=== PATIENT | female | born 1970 | race Caucasian/White ===

== ENCOUNTER 2020-06-21 19:01 | Emergency (ER) | payer SELFPAY ==
[2020-06-21 19:02] VITALS: BP 156/102; PULSE 103; RESP 18; TEMP 35.8; O2SAT 99; BMI 26.5
--- NOTE | 2020-06-21 19:05 | RAD_ITS ---
STUDY: X-RAY - RIGHT WRIST REASON FOR EXAM: Female, 50 years old. FALL INJURY TECHNIQUE: 3 view(s) of the wrist were obtained. COMPARISON: None. FINDINGS: A small linear fracture is present through the dorsum of the triquetrum with minimal cortical offset and mild overlying soft tissue swelling. No additional fractures are seen. Normal visualized distal radius and ulna. Normal radiocarpal articulation. Normal distal radioulnar articulation. Normal carpal bones. Normal carpal articulations. Normal carpometacarpal articulation of the thumb. Normal second through fifth carpometacarpal articulations. Normal visualized metacarpal bones. The soft tissue structures are unremarkable. RAD/Wrist min 3 Views IMPRESSION: A small linear fracture is present through the dorsum of the triquetrum with minimal cortical offset and mild overlying soft tissue swelling. No additional fractures are seen Electronically Signed: Ovidio Mc MD at 19:46 EST , Service support ,
--- NOTE | 2020-06-21 20:23 | ED.DCSUM_ITS ---
- ER Visit Summary Date of Service: 06/21/20 Chief Complaint: Right wrist pain History of Present Illness: The patient is a 50 F with no primary care physician. She is right-hand dominant. 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 Reports yesterday she slipped on the ice and injured her right wrist. She states that she has s harp pain with that is 8 out of 10 with movement no pain at rest. She denies any other injuries. No blow to the head or loss of consciousness. She not on anticoagulants. No neck, back, shoulder, or hip pain. Physical Examination: Vitals: Stable. Afebrile. Neck: No vertebral tenderness. Full ROM without difficulty. Cleared by NEXUS criteria. Back: No vertebral tenderness. General: A&O x 3. NAD. Cardiovascular exam: Regular rate and rhythm, no murmur, rub or gallop. Respiratory exam: Chest nontender. No crepitus. Clear to auscultation bilaterally. No wheezes or stridor. Abdominal exam: Soft, nontender, nondistended, normal bowel sounds. No pain in RUQ or LUQ specifically. No peritoneal signs. Extremity: No pain over the right distal radius. She does have moderate pain over the proximal portion of her hand laterally on the dorsum. She is neuro vas intact distal this. Test Results: Clinical Impression(s) from Imaging Studies Wrist X-Ray 06/21/20 19:05 IMPRESSION: A small linear fracture is present through the dorsum of the triquetrum with minimal cortical offset and mild overlying soft tissue swelling. No additional fractures are seen Electronically Signed: Ovidio Mc MD at 19:46 EST , Service support , Emergency Department Course and Treatment: Patient refused pain medications. She was placed in Ortho-Glass volar splint. Treatment Plan: Patient be discharged with Gypsum. Instructed follow-up Dr. Sidhu in 1 week for another exam. Return to the emergency department for any worsening symptoms. Disposition: To home in improved and stable condition. Impression: 1. Right triquetral fracture. 2. Ortho-Glass volar splint, fabricated. This note was generated with [employer] software. It may contain incorrect words, spelling, and punctuation that were not noted in review of the chart prior to signing ED Disposition - Plan for ED Patient: Instructions: ED Closed Hand Fracture (Adult) Prescriptions: Hydrocodone Bitart/Apap 5-325 [Gypsum 5MG-325MG] 1 tablet PO Q6H PRN PRN 3 Days #10 tablet PRN Reason: Pain Referrals: Fer Garza DO [STAFF PHYSICIAN] - 1 Week
== END 2020-06-21 21:05 | disposition home or self-care (01) ==
LOC: ED 21:03
PROVIDERS: Emergency Provider Emergency Medicine
DX: S62.111A Displaced fracture of triquetrum [cuneiform] bone, right wrist, initial encounter for closed fracture (principal); W00.0XXA Fall on same level due to ice and snow, initial encounter
CPT/HCPCS: 29125; 73110; 99282

== ENCOUNTER → 2021-09-11 | Outpatient (CLI) | payer SELFPAY ==
[2021-09-11 16:57] LABS: Absolute Lymphocyte Count 2.83 X10^3/uL (0.83-4.51); Absolute Neutrophil Count 5.7 X10^3/uL (2.0-7.7); Basophil# 0.06 X10^3/uL; Basophil% 0.6 % (0-1); Eosinophil# 0.44 X10^3/uL; Eosinophils% 4.5 % (0-5); Hematocrit 39.5 % (37-47); Hemoglobin 12.9 g/dL (12.0-15.0); Lymphocyte # 2.83 X10^3/ul (0.83-4.51); Lymphocyte % 28.8 % (19-41); Mean Corp Hgb Conc 32.7 g/dL (32-36); Mean Corpuscular Hgb 29.9 pg (27.0-32.0); Mean Corpuscular Volume 91.6 fL (81-99); Mean Platelet Vol. 10.4 fl (6.2-12.0); Monocyte# 0.72 X10^3/uL; Monocyte% 7.3 % (0-10); NRBC Flagged by Analyzer 0 % (0-5); Neutrophil # 5.72 X10^3/uL (2.7-7.7); Neutrophil % 58.3 % (47-70); Platelet Count 313 K/mm3 (150-450); RBC Distribution Width CV 12.2 % (11.6-14.6); RBC Distribution Width SD 41.1 fl (35.1-43.9); Red Blood Count 4.31 M/mm3 (4.2-5.4); White Blood Count 9.8 K/mm3 (4.4-11.0)
[2021-09-11 17:17] LABS: ALB/GLOB Ratio 1.1 RATIO (0.9-2.4); AST(SGOT) 13 U/L (15-37); Alanine Aminotransfer ALT/SGPT 25 U/L (13-56); Albumin, Serum 3.9 g/dL (3.2-5.0); Alkaline Phosphatase 64 U/L (45-117); Anion Gap 5 (5-15); BUN 13 mg/dL (7-18); BUN/Creat Ratio 17.8 RATIO (10-20); Calcium,Total 9.4 mg/dL (8.5-10.1); Chloride 105 mmol/L (98-107); Cholesterol 141 mg/dL (200); Creatinine, Serum 0.73 mg/dL (0.55-1.02); EST Glomerular Filtration Rate 88 mL/min (>60); Est Glom Filt Rate - Afr Amer 107 mL/min (>60); Globulin 3.6 g/dL (2.2-4.2); Glucose 96 mg/dL (74-106); High Density Lipoprotein 56 mg/dL; Potassium 3.7 mmol/L (3.5-5.1); Protein, Total 7.5 g/dL (6.4-8.2); Sodium Level 138 mmol/L (136-145); T4 Free Direct 1.13 ng/dL (0.76-1.46); Thyroid Stim Hormone (TSH) 1.36 uIU/mL (0.358-3.74); Triglycerides 51 mg/dL; Very Low Density Lipoprotein 10 mg/dL (5-40)
== END | disposition home or self-care (01) ==
LOC: BIMLAB 15:36
PROVIDERS: PCP Internal Medicine; Referring Provider Internal Medicine; Visit Provider Internal Medicine
DX: Z13.29 Encounter for screening for other suspected endocrine disorder (principal); I10 Essential (primary) hypertension
CPT/HCPCS: 36415; 80053; 80061; 84439; 84443; 85025

== ENCOUNTER → 2023-11-03 | Outpatient (CLI) | payer SELFPAY ==
--- NOTE | 2023-11-03 13:46 | RAD_ITS ---
INDICATION: right ankle lateral swelling EXAMINATION/TECHNIQUE: X-RAY - RIGHT XR Ankle Min 3 Views 3 VIEWS COMPARISON: FINDINGS: SOFT TISSUES: Lateral soft tissue swelling. No radiopaque foreign body. BONES/JOINTS: No acute fracture or subluxation.. Normal alignment. Preservation of the joint space.. No sclerotic or destructive changes observed. RAD/Ankle min 3 Views IMPRESSION: No acute bony injury. Electronically Signed: J Luis Zapien DO at 15:04 EDT ,
== END | disposition home or self-care (01) ==
PROVIDERS: PCP Internal Medicine; Referring Provider Nurse Practitioner; Visit Provider Nurse Practitioner
DX: M25.571 Pain in right ankle and joints of right foot (principal)
CPT/HCPCS: 73610

== ENCOUNTER 2023-12-08 15:01 | Emergency (ER) | payer SELFPAY ==
[2023-12-08] VITALS (7 sets, daily range): BP systolic 126–167; BP diastolic 66–86; PULSE 95–118; RESP 16–22; TEMP 36.4–36.6; O2SAT 96–100; BMI 31.2
--- NOTE | 2023-12-08 15:10 | RAD_ITS ---
STUDY: X-RAY - LEFT ANKLE REASON FOR EXAM: Female, 53 years old. Fall and ankle deformity. TECHNIQUE: 3 view(s) of the ankle. COMPARISON: Comparison is made with prior study of November 03, 2023. FINDINGS: There is evidence of a fracture dislocation of the medial and lateral malleoli as well as the posterior malleolus of the distal tibia. There is posterior dislocation of the fracture fragments. Normal visualized talus and calcaneus. The visualized subtalar, talonavicular, calcaneocuboid and tarsal articulations are normal. Soft tissue swelling. RAD/Ankle min 3 Views IMPRESSION: Fracture dislocation of the distal tibia and fibula with a posterior dislocation at the fracture site. Diffuse soft tissue swelling. Electronically Signed: Alejandro Edouard MD at 15:44 EDT ,
--- NOTE | 2023-12-08 15:37 | ED.VIS.LOWEX ---
HPI History of Present Illness HPI Narrative: Patient presents with injury to her left ankle that occurred today. Patient states she was walking down the steps when she stepped on a tool and twisted her ankle. Patient states she fell backwards but did not fall down the steps. Patient states that she noted deformity to her ankle. Patient states her pain is sharp. Patient states it is worse with any movement. Patient denies any paresthesias or weakness. Patient denies any head injury or loss of consciousness. Patient denies any other injuries. Chief Complaint: Lower Extremity Injury Informant: patient Occured/Mechanism Mechanism/Context: Yes fall Onset/Context/Timing Onset: Today Context: Sudden Onset Timing: Continuous Quality of Pain: Sharp Location: Left ankle Worsened by: Movement Relieved by: Nothing Associated Symptoms Associated Symptoms: Negative for Parasthesia, Weakness or Loss of Funtion Narrative Tetanus Immunization: Unknown [facility] Medical History Left ankle pain Overweight (BMI 25.0-29.9) Colon cancer screening Health care maintenance Screening for thyroid disorder Hypertension History of miscarriage Home Medications ?Medication ?Instructions ?Recorded ?Last Taken ?Type oxycodone-acetaminophen 5 mg-325 1 tab PO Q6H PRN PRN Pain 3 days 12/08/23 Unknown Rx mg tablet #12 TABLETS Allergy/AdvReac Type Severity Reaction Status Date / Time No Known Allergies Allergy Verified 10/31/23 15:23 Family History Father Alcoholism Myocardial infarction Hypertension High cholesterol Grandmother Ovarian cancer Surgical History History of dilation and curettage Social History Smoking Status: Never smoker alcohol intake: current alcohol intake frequency: holidays/special occasions only substance use type: does not use what type of physical activity do you participate in: walking frequency: 1-2 times per week ROS ROS ED Constitutional Constitutional ED: Denies chills or fever(s) Eyes Eyes: Denies blurry vision or change in vision ENT ENT ED: Denies rhinorrhea or sore throat Cardiovascular Cardiovascular: Denies chest pain or palpitations Respiratory/Chest Respiratory/Chest: Denies cough or dyspnea Gastrointestinal Gastrointestinal: Denies nausea or vomiting Genitourinary Genitourinary ED: Denies dysuria or hematuria Musculoskeletal Musculoskeletal: Denies back pain or neck pain Integumentary Denies abscess or rash Neurologic Neurologic: Denies headache(s) or weakness Allergic/Immunologic Allergic/Immunologic ED: Denies mouth swelling or urticaria EXAM Physical Exam Const Vital Signs: 12/08/23 15:01 12/08/23 15:53 12/08/23 16:07 Temperature 97.5 F L 97.9 F Temperature Source Temporal Pulse Rate 98 104 H Pulse Rate [1 (Initial Baseline)] 115 H Pulse Rate [2] 118 H Pulse Rate [3] 101 H Pulse Rate [4] 96 Respiratory Rate 19 H 18 Respiratory Rate [1 (Initial Baseline)] 20 H Respiratory Rate [2] 20 H Respiratory Rate [3] 22 H Respiratory Rate [4] 20 H Blood Pressure 148/86 H 147/80 H Blood Pressure [1 (Initial Baseline)] 156/85 H Blood Pressure [2] 167/80 H Blood Pressure [3] 134/68 H Blood Pressure [4] 134/68 H Blood Pressure Mean 106 Pulse Ox 97 99 Oxygen Delivery Method Room Air Oxygen Delivery Method [1 (Initial Baseline)] Nasal Cannula Oxygen Delivery Method [2] Nasal Cannula Oxygen Delivery Method [3] Nasal Cannula Oxygen Delivery Method [4] Nasal Cannula Oxygen Flow Rate (L/min) Oxygen Flow Rate (L/min) [1 (Initial Baseline)] 4 Oxygen Flow Rate (L/min) [2] 4 Oxygen Flow Rate (L/min) [3] 37 Oxygen Flow Rate (L/min) [4] 4 12/08/23 16:25 12/08/23 16:30 Temperature Temperature Source Pulse Rate Pulse Rate [1 (Initial Baseline)] Pulse Rate [2] Pulse Rate [3] Pulse Rate [4] Respiratory Rate Respiratory Rate [1 (Initial Baseline)] Respiratory Rate [2] Respiratory Rate [3] Respiratory Rate [4] Blood Pressure Blood Pressure [1 (Initial Baseline)] Blood Pressure [2] Blood Pressure [3] Blood Pressure [4] Blood Pressure Mean Pulse Ox Oxygen Delivery Method Room Air Room Air Oxygen Delivery Method [1 (Initial Baseline)] Oxygen Delivery Method [2] Oxygen Delivery Method [3] Oxygen Delivery Method [4] Oxygen Flow Rate (L/min) 99 Oxygen Flow Rate (L/min) [1 (Initial Baseline)] Oxygen Flow Rate (L/min) [2] Oxygen Flow Rate (L/min) [3] Oxygen Flow Rate (L/min) [4] Positive well nourished and well developed General Appearance ED: well developed and NAD HEENT Reports moist mucous membranes Neck full ROM and supple Extremity Extremity Narrative: There is a deformity of the left ankle. There is edema noted. There is diffuse tenderness over the left ankle. Pedal pulses are equal bilaterally. Sensation was intact to light touch in all digits. Capillary refill was less than 2 seconds in all digits. Range of motion was limited in all motions of the left ankle secondary to pain. There is no tenderness over the proximal fibula. Neuro oriented x3, CN's II-XII intact bilaterally, moves all extremities and no sensory deficits noted Sensorium / Orientation: alert Motor Exam: strength 5/5 throughout MDM MDM MDM Narrative Medical decision making narrative: Differential diagnosis includes fracture and dislocation. X-rays of the left ankle will be obtained to assess for fracture and dislocation. Radiography Diagnostic Testing: Clinical Impression(s) from Imaging Studies Ankle X-Ray 12/08/23 15:10 IMPRESSION: Fracture dislocation of the distal tibia and fibula with a posterior dislocation at the fracture site. Diffuse soft tissue swelling. Electronically Signed: Alejandro Edouard MD at 15:44 EDT , X-rays of the left ankle were obtained. There are 3 views. On my independent interpretation, there is a trimalleolar fracture and dislocation of the talus posteriorly. Radiologist also interpreted the x-rays and agrees. Repeat x-rays of the left ankle were obtained. There are 2 views. On my independent interpretation, there is satisfactory reduction of the fracture and dislocation. Radiologist also interpreted the x-ray and agrees Management Discussion w/another healthcare provider: Printmaker Treatment and Re-Evaluation Narrative: Patient was advised of the need for reduction and application of a splint. Patient was advised of the need for sedation to reduce the ankle. Patient was given the opportunity ask questions. Patient had no further questions. Patient was agreeable to sedation and reduction. Patient was placed on continuous cardiac and pulse oximeter monitors. Patient was given a total of 100 mg of propofol. The ankle was reduced. A well-padded custom made posterior and sugar-tong splint was applied to the ankle. The posterior splint was 5 inch Ortho-Glass and a sugar-tong splint was 3 inch Ortho-Glass. Patient tolerated the procedure well. Neurovascular exam was intact after application of the splint and reduction of the ankle. There were no hypoxic episodes. Repeat x-rays will be obtained to assess for reduction of the ankle fracture and dislocation. Patient was given a prescription for Percocet. Patient was given crutches. Case was discussed with Dr. Baird from podiatry. He was advised of the x-ray findings and the treatment here in the emergency department. He will follow-up with the patient in his office tomorrow. Patient understood and was agreeable with the plan. All questions were answered. Procedures Lower Extremity Splints Lower Extremity Splint: Orthoglass, Stirrup and - (Posterior) Splint Fabrication: Fabricated Location: Left Procedural Sedation 1 (Initial Baseline): Consent Signed: Yes Any Problems With Anesthesia: No You/Your family experience fever (hyperthermia) w/anesthesia: No Sedation medication: Propofol Dose: 100 Route: IV Maliampati Score: Class I ASA Classification: I Discharge Plan Triage Chief Complaint: Lower Extremity Injury ED Provider: Amadou Strong Dx/Rx/DC Orders Clinical Impression: Trimalleolar fracture of left ankle, Fall Instructions: ED Ankle Fracture Prescriptions: New oxycodone-acetaminophen 5-325 mg tablet 1 tab PO Q6H PRN PRN (Reason: Pain) 3 Days Qty: 12 0RF Primary Care Provider: Lia Maxwell Referrals: Vladimir Baird DPM [Med Staff - Active Staff] - 1 Day Lia Maxwell MD [Primary Care Provider] - Print Language: Greenlandic Disposition Disposition: Home, Self Care
[2023-12-08] MEDS: Morphine 4 MG/ML Syringe IV (16:00)
[2023-12-08] MEDS: Propofol 200 MG/20 ML Vial IV BOLUS (16:00)
--- NOTE | 2023-12-08 16:35 | RAD_ITS ---
EXAM: XR LEFT ANKLE, 2 VIEWS CLINICAL INDICATION: Ankle fracture TECHNIQUE: Frontal and lateral views of the left ankle. COMPARISON: 12/08/2023 at 1510 hours FINDINGS: BONES/JOINTS: Casting material has been placed. There has been a closed reduction of the fracture dislocation of the ankle. The bimalleolar fracture fragments are in anatomic alignment. The tibiotalar joint space is maintained. No sclerotic or destructive changes observed. SOFT TISSUES: Unremarkable. No soft tissue swelling or gas. No radiopaque foreign body. RAD/Ankle 2 Views IMPRESSION: Closed reduction of bimalleolar fracture as well as tibiotalar dislocation. Alignment is anatomic. Casting material is in place. Electronically Signed: Patrick Green MD at 17:16 EDT ,
== END 2023-12-08 17:02 | disposition home or self-care (01) ==
PROVIDERS: Emergency Provider Emergency Medicine; PCP Internal Medicine; Visit Provider Emergency Medicine
DX: S82.852A Displaced trimalleolar fracture of left lower leg, initial encounter for closed fracture (principal); I10 Essential (primary) hypertension; W10.9XXA Fall (on) (from) unspecified stairs and steps, initial encounter
CPT/HCPCS: 27818; 73600; 73610; 99152; 99285; J7030; A4216

== ENCOUNTER → 2023-12-19 | Outpatient (CLI) | payer SELFPAY ==
[2023-12-19 14:59] LABS: Absolute Lymphocyte Count 2.03 X10^3/uL (0.83-4.51); Absolute Neutrophil Count 8.4 X10^3/uL (2.0-7.7); Basophil# 0.04 X10^3/uL; Basophil% 0.4 % (0-1); Eosinophil# 0.14 X10^3/uL; Eosinophils% 1.3 % (0-5); Hematocrit 39.7 % (37-47); Hemoglobin 13.1 g/dL (12.0-15.0); Lymphocyte # 2.03 X10^3/ul (0.83-4.51); Lymphocyte % 18.1 % (19-41); Mean Corpuscular Volume 90.8 fL (81-99); Monocyte# 0.58 X10^3/uL; Monocyte% 5.2 % (0-10); NRBC Flagged by Analyzer 0 % (0-5); Neutrophil # 8.38 X10^3/uL (2.7-7.7); Neutrophil % 74.7 % (47-70); Platelet Count 362 K/mm3 (150-450); RBC Distribution Width CV 13.2 % (11.6-14.6); RBC Distribution Width SD 43.9 fl (35.1-43.9); Red Blood Count 4.37 M/mm3 (4.2-5.4); White Blood Count 11.2 K/mm3 (4.4-11.0)
[2023-12-19 15:15] LABS: ALB/GLOB Ratio 0.9 RATIO (0.9-2.4); AST(SGOT) 14 U/L (15-37); Alanine Aminotransfer ALT/SGPT 25 U/L (13-56); Albumin, Serum 3.5 g/dL (3.2-5.0); Alkaline Phosphatase 75 U/L (45-117); Anion Gap 5 (5-15); BUN 12 mg/dL (7-18); BUN/Creat Ratio 18.3 RATIO (10-20); Calcium,Total 9.2 mg/dL (8.5-10.1); Chloride 106 mmol/L (98-107); Cholesterol 136 mg/dL (200); Creatinine, Serum 0.66 mg/dL (0.55-1.02); EST Glomerular Filtration Rate 99 mL/min (>60); Est Glom Filt Rate - Afr Amer 120 mL/min (>60); Globulin 3.9 g/dL (2.2-4.2); Glucose 145 mg/dL (74-106); High Density Lipoprotein 61 mg/dL; Potassium 3.8 mmol/L (3.5-5.1); Protein, Total 7.4 g/dL (6.4-8.2); Sodium Level 139 mmol/L (136-145); Triglycerides 55 mg/dL; Very Low Density Lipoprotein 11 mg/dL (5-40)
[2023-12-23 16:42] LABS: Hemoglobin A1c 5.4 % (3.8-5.6)
== END | disposition home or self-care (01) ==
LOC: MTLAB 13:30
PROVIDERS: PCP Nurse Practitioner Family; Referring Provider Nurse Practitioner Family; Visit Provider Nurse Practitioner Family
DX: Z01.818 Encounter for other preprocedural examination (principal); R73.01 Impaired fasting glucose
CPT/HCPCS: 36415; 80053; 80061; 83036; 85025

== ENCOUNTER 2023-12-26 06:01 | Day surgery (SDC) | payer SELFPAY ==
[2023-12-26] VITALS (13 sets, daily range): BP systolic 130–157; BP diastolic 69–90; PULSE 93–116; RESP 14–20; TEMP 36–36.9; O2SAT 91–100; BMI 28.9
[2023-12-26] MEDS: Lactated Ringers 1,000 ML 15 ML IV (06:27)
--- NOTE | 2023-12-26 06:30 | RAD_ITS ---
EXAM: XR LEFT ANKLE COMPLETE, 3 OR MORE VIEWS CLINICAL INDICATION: TRIMALLEOLAR ANKLE FRACTURE TECHNIQUE: Frontal, lateral and oblique views of the left ankle. COMPARISON: No relevant prior studies available. FINDINGS: BONES/JOINTS: Intraoperative images show a trimalleolar fracture. There is an orthopedic plate and screws placed over the lateral malleolar fracture with orthopedic screw in the medial malleolar fracture. Preservation of the joint space. No sclerotic or destructive changes observed. SOFT TISSUES: Unremarkable. No soft tissue swelling or gas. No radiopaque foreign body. RAD/Ankle min 3 Views IMPRESSION: ORIF of lateral and medial malleolar fractures. Electronically Signed: Patrick Green MD at 0:09 EDT ,
--- NOTE | 2023-12-26 07:11 | PCM.PRE.AN2 ---
ASA Classification* ASA Classification ASA Classification: 2 Assessment & Plan Anesthesia* Anesthesia Assessment Anesthesia Assessment: Discussed sedation and/or anesthesia options, risks, benefits, and alternatives with patient/parents/legal guardian/POA. Questions invited. The patient/parents/legal guardian/POA seems to understand and agrees to proceed with anesthesia plan. Reviewed the physical assessment, medical history, allergy history and patient home medications list prior to surgery/procedure/anesthetic and documented any changes. Performed airway and anesthesia risk assessments. Anesthesia Type Anesthesia Type: General (Consented for block for post op pain) Anesthesia Focused Assessment* Temperature: 98.5 F Pulse Rate: 116 Blood Pressure: 132/90 Respiratory Rate: 16 Pulse Ox: 100 Airway Assessment Mouth opens: >3 cm Mallampati Score: II Focused Labs Anesthesia Preop lab: CBC WBC 11.2 K/mm3 (4.4-11.0) H 12/19/23 13:35 RBC 4.37 M/mm3 (4.2-5.4) 12/19/23 13:35 Hgb 13.1 g/dL (12.0-15.0) 12/19/23 13:35 Hct 39.7 % (37-47) 12/19/23 13:35 Plt Count 362 K/mm3 (150-450) 12/19/23 13:35 CHEMISTRY Potassium 3.8 mmol/L (3.5-5.1) 12/19/23 13:35 Sodium 139 mmol/L (136-145) 12/19/23 13:35 BUN 12 mg/dL (7-18) 12/19/23 13:35 Creatinine 0.66 mg/dL (0.55-1.02) 12/19/23 13:35 Glucose 145 mg/dL (74-106) H 12/19/23 13:35 TSH 1.36 uIU/mL (0.358-3.74) 09/11/21 15:36 COAG Pre-Assessment Diagnosis/Proposed Procedure Planned Operative Procedure(s): (L) ORIF of left trimalleolar ankle fracture Anesthesia History 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 When Was Last Pacemaker Check QUESTION #4 FULL TEXT: You/Your Family Experience fever (hyperthermia) with Anesthesia Last Oral Intake Last Oral intake: Last Oral Intake NPO since 22:00 12/26/23 06:21 Meds taken in AM with sips of Yes 12/26/23 06:21 water? 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 Female Yes 12/25/23 08:26 HX of Motion Sickness Yes 12/25/23 08:26 HX of N/V After Surgery No 12/25/23 08:26 Non-Smoker Yes 12/25/23 08:26 Duration of Surgery greater Yes 12/25/23 08:26 than 60 minutes Number of Risk Factors 4 12/25/23 08:26 PONV Score Severe Risk 12/25/23 08:26 Height & Weight Height & Weight: Anesthesia: Height & Weight Height 5 ft 2 in 12/26/23 06:21 Weight: 71.668 kg 12/26/23 06:21 Body Mass Index (BMI) 28.9 12/26/23 06:21 Respiratory Assessment Respiratory Assessment - 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 Has anyone observed you stop No 12/25/23 08:26 breathing during sleep? STOP Results Negative 12/25/23 08:26 QUESTION #5 FULL TEXT : Do you snore loudly (louder than talking or can be heard through closed doors)? 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 Specify any problems Hx of Preganancy in last 3 N/A 12/25/23 08:26 Months Nurse Filling Out Transfusion NBUCHER 12/25/23 08:26 & Questions: Date: 12/25/23 12/25/23 08:26 Time: 08:26 12/25/23 08:26 Patient unable to answer at this time (ie. 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 Hx Now No 12/25/23 08:26 Gestational Age (in weeks): EDC: Hx Hx Para Hx Section SAB No 12/25/23 08:26 Active Medications Active Medications: Current Medications Generic Name Dose Route Start Last Admin Trade Name Freq PRN Reason Stop Dose Admin Cefazolin Sodium 2 gm/ Sodium 110 mls @ 150 mls/hr 12/26/23 07:30 Chloride IV 12/26/23 08:13 PREOP ONE Lactated Ringer's 1,000 mls @ 15 mls/hr 12/26/23 06:15 12/26/23 06:27 IV 15 mls/hr .Q48H AYDIN Administration PFSH Medical History Non-smoker Left ankle pain Overweight (BMI 25.0-29.9) Colon cancer screening Health care maintenance Screening for thyroid disorder Hypertension History of miscarriage Home Medications ?Medication ?Instructions ?Recorded ?Last Taken ?Type multivitamin (Daily Multi-Vitamin 1 tab PO DAILY 08/29/24 Unknown History tablet) aspirin 81 mg tablet,delayed 81 mg PO DAILY 12/26/23 12/26/23 02:00 History release (Adult Low Dose Aspirin) Allergy/AdvReac Type Severity Reaction Status Date / Time No Known Allergies Allergy Verified 12/26/23 06:20 Family History Father Alcoholism Myocardial infarction Hypertension High cholesterol Grandmother Ovarian cancer Surgical History History of dilation and curettage (~1989) Social History Smoking Status: Never smoker alcohol intake: current alcohol intake frequency: holidays/special occasions only substance use type: does not use what type of physical activity do you participate in: walking frequency: 1-2 times per week Review of Systems (Anesthesia) ROS Narrative System reviewed and no additional complaints, except as documented.
[2023-12-26] MEDS: Cefazolin 2 GM in 0.9% Normal Saline (100mL Bag) 100 ML IV (07:45)
[2023-12-26] MEDS: Bacitracin 500 UNITS/GM PACKET (09:30)
--- NOTE | 2023-12-26 10:22 | OP.PCM_ITS ---
Problems Associated Problem List Diagnoses (1) Closed displaced trimalleolar fracture of left ankle: Report of Operation Date of Procedure: 12/26/23 Pre-Operative Diagnosis: 1) closed displaced left trimalleolar ankle fracture Post-Operative Diagnosis: Postoperative diagnosis same Surgery/Procedure Performed:: Open reduction internal fixation left trimalleolar ankle fracture Description of Surgical Findings:: Patient suffered fall while moving 2 weeks prior fracture left ankle she was closed reduced in ER and sent to our office for additional workup regarding open reduction internal fixation patient agreed to move forward to restabilize ankle limit posttraumatic osteoarthritis and return the patient to normal ambulatory function as early as possible Surgeon: Vladimir Baird intelligence analyst: None (angela beverage) Type of Anesthesia: General Special Medications: Preoperative popliteal block per anesthesia Specimen's removed: None Drains: None Estimated Blood Loss (mL): Minimal Description of Procedure: Patient brought back to the operating placed comfortably in supine position on the operating table. Patient induced under general anesthesia. Well-padded left thigh tourniquet applied. Left lower extremity bumped to knock on external rotation and placed on blankets to elevate relative the contralateral limb for radiographic imaging. Left lower extremity scrubbed prepped draped using typical aseptic fashion. Once cleared by anesthesia left lower extremity tourniquet was not inflated after left lower extremity was elevated exsanguinated. Incision was made laterally directly over the fibula down to the level of bone extending from proximal to distal to the fracture fracture site. Any bleeders identified cauterized. Blunt dissection was taken down to level of deep fascia and periosteum in which a periosteal incision was made and fracture hematoma was noted. Additional curettage was performed of the fracture site as well as flushing to expose and mobilize the distal fracture fragment. This was mobilized and placed in a reduced position and clamped using bone reduction forceps and a lateral locking plate was applied using manufactures guidelines per [employer]. Adequate reduction of the fibula was noted at this time. Syndesmosis was stressed and noted to be unstable after dorsiflexion external rotation stressing. This was stabilized with 2 cinch fix Suture bridges they were placed using manufactures guidelines. Last a medial incision was made along the medial aspect of the ankle the medial malleolus fracture fragment was visualized after linear incision directly over the medial malleolus any bleeders identified cauterized incision was made through epidermis dermis into subcutaneous tissue any important neurovascular structures identified and retracted for protection atraumatically. Deep periosteal incision was made the fracture site was identified and curetted and flushed did not remove any hematoma or fragments limiting reduction with a percutaneous guidewire was placed across the fracture site no to be held in rectus alignment confirmed intraoperatively with visualization of the fracture fragment directly in fluoroscopic imaging restoring the ankle mortise distal screw was placed partially-threaded cannulated 4 oh screw across the fracture site using manufactures guidelines. K wire was removed final radiographs were taken the ankle mortise was noted to be intact with restored fibular length derotation of the distal fibular fibular fracture back into a rectus alignment confirmed as well as reduction of the medial malleolus and distal tibiofibular syndesmosis. vitoss graft was packed in the fracture sites to allow for additional healing. Tourniquet was let down again any bleeders identified cauterized sites were flushed with copious amounts normal sterile saline medially laterally deep fascial closure performed with running interlocking 2-0 Vicryl skin and subcutaneous scalp subcutaneous closure performed with buried interrupted 3-0 Vicryl skin closure performed with renetta dressing sites dressed with bacitracin Adaptic 4 x 4's Kerlix and a well-padded AO splint with the foot held in a rectus position. Patient was transferred to PACU vital signs stable vascular status intact to all digits for further monitoring prior to discharge. Patient tolerated procedure well in apparent satisfactory condition. She will be discharged maintain nonweightbearing to left lower extremity until follow-up and keep her dressing clean dry and intact. No complications Perfect reduction of ankle mortise status post ORIF
[2023-12-26] MEDS: Ketorolac 30 MG/ML Syringe IV (11:22)
[2023-12-26] MEDS: oxyCODONE 5 MG Tablet PO (11:50)
--- NOTE | 2023-12-26 12:33 | PCM.POST.ANE ---
Anesthesia: Postop Eval I Current Vital Signs Temperature: 97.5 F Pulse Rate: 94 Blood Pressure: 136/80 Respiratory Rate: 16 Pulse Ox: 94 Oxygen Delivery Method: Room Air Assessment Airway patent: Yes Spontaneous unlabored respirations: Yes Mental status: Awake and Calm nausea: No Vomiting: No Anesthesia Complication: No Fluid Hydration Crystalloid volume administer (ml): 1,500 Total IV fluid infused: 1,500 Progress Note Anesthesia document: Postop Eval 1 completed: Yes
--- NOTE | 2023-12-26 13:07 | POSTOPAN2_ITS ---
Anesthesia Postop Eval I Sum Postop Eval Completion status Anesthesia document: Postop Eval 1 completed: Yes Anesthesia Postop Eval I Summary Anesthesia Postop Eval I Summary: Anesthesia Postop Eval I: Assessment Summary Airway patent Yes 12/26/23 12:34 [email or web address] Spontaneous unlabored Yes 12/26/23 12:34 [email or web address] respirations Mental status Awake,Calm 12/26/23 12:34 [email or web address] nausea No 12/26/23 12:34 [email or web address] Vomiting No 12/26/23 12:34 [email or web address] Anesthesia Postop Eval I: Fluid Summary Crystalloid volume administer 1,500 12/26/23 12:34 [email or web address] (ml) Colloids volume administered ( ml) Blood Product volume administered (ml) Total IV fluid infused 1,500 12/26/23 12:34 [email or web address] Anesthesia Postop Eval I: Summary Notes Anesthesia Complication No 12/26/23 12:34 [email or web address] Anesthesia Complication Comment: Post-operative progress note Anesthesia: Postop Eval II Evaluation Mental status: Awake and Calm Pain Level: 2 nausea: No Vomiting: No Complications Anesthesia Complication: No
--- NOTE | 2023-12-26 13:07 | PCM.POSTANE2 ---
Anesthesia Postop Eval I Sum Postop Eval Completion status Anesthesia document: Postop Eval 1 completed: Yes Anesthesia Postop Eval I Summary Anesthesia Postop Eval I Summary: Anesthesia Postop Eval I: Assessment Summary Airway patent Yes 12/26/23 12:34 [email or web address] Spontaneous unlabored Yes 12/26/23 12:34 [email or web address] respirations Mental status Awake,Calm 12/26/23 12:34 [email or web address] nausea No 12/26/23 12:34 [email or web address] Vomiting No 12/26/23 12:34 [email or web address] Anesthesia Postop Eval I: Fluid Summary Crystalloid volume administer 1,500 12/26/23 12:34 [email or web address] (ml) Colloids volume administered ( ml) Blood Product volume administered (ml) Total IV fluid infused 1,500 12/26/23 12:34 [email or web address] Anesthesia Postop Eval I: Summary Notes Anesthesia Complication No 12/26/23 12:34 [email or web address] Anesthesia Complication Comment: Post-operative progress note Anesthesia: Postop Eval II Evaluation Mental status: Awake and Calm Pain Level: 2 nausea: No Vomiting: No Complications Anesthesia Complication: No
== END 2023-12-26 13:52 | disposition home or self-care (01) ==
LOC: SDC 06:01 → AC 06:08
PROVIDERS: PCP Internal Medicine; Referring Provider Podiatrist; Visit Provider Podiatrist
PROC: (CPT 27822; principal; 2023-12-26 07:10)
DX: S82.852D Displaced trimalleolar fracture of left lower leg, subsequent encounter for closed fracture with routine healing (principal); W19.XXXD Unspecified fall, subsequent encounter; I10 Essential (primary) hypertension; E66.3 Overweight; Z68.25 Body mass index [BMI] 25.0-25.9, adult
CPT/HCPCS: 27822; 01480; 64450; 73610; 76000; C1713; J7120; J2405

== ENCOUNTER 2024-03-12 10:30 | Outpatient (RCR) | payer SELFPAY ==
--- NOTE | 2024-02-24 11:06 | HP.PTEVAL_ITS ---
Patient's Visit Information Visit Information Visit Information: ABDULLAHI AMATO is a 53 year old F referred to Physical Therapy by Dr. Vladimir Baird DPM with a diagnosis of L ankle Fx s/p 12/26/23. Date of Evaluation: 02/24/24 Physical Therapist: Alfredito Khoury, PT, ATC Visit Plan Frequency: 1x/Week Duration: 1 Week Plan: Issue and instruct pt on HEP of L ankle stretching, strengthening, AROM, and balance activity Subjective Subjective: DOS: 12/26/23. Pt reports she was renovating her house at the time. Pt reports she was walking down stairs when she stepped on a tool and fractured her L ankle. Pt notes she had to have a surgery involving plates and screws to fix. Pt reports she was placed into a cast for 6 total weeks, and then a boot for 4 weeks. Pt notes she was NWBing while having the cast, but has been able to WB since she had the boot on. Pt notes she has been wearing a brace since getting out of the boot. 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 Pt reports her L foot will become numb on her if she does too much weightbearing activity. Otherwise, no numbness. Pt reports occasional sleep difficulty at this time, especially with weather changes. 0/10 pain while at rest, 9/10 pain when at its very worst. Pt has stairs that she has to negotiate one step at a time. Pain L ankle: Pain Intensity (Out of 10): 0 Pain Intensity Range: 9 Objective Objective: Neuro: B LE sensation is WNL to light touch ROM: R ankle DF= 15, PF= 55 degrees; L ankle DF= 1, PF= 15 MMT: R ankle DF= 28, PF= 41 #F; L ankle DF= 9, PF= 18 #F TU sec Balance/Special Test Scores Lower Extremity Functional Score: 45 Goals Goal 1:: I with HEP Goal Time Frame: 1 Week Rehabilitation Potential Physical Therapy Diagnosis: Pt has L ankle pain, weakness, and limited ROM secondary to being S/P L ankle surgery Rehabilitation Potential: Good Anticipated Interventions Patient/Client Instruction: Educate patient on: Condition and Plan of Care For the Purpose of:: To improve self management Therapeutic Exercise to Include: Strength training, Balance training, Flexibilty training and Active ROM For the Purpose of:: To decrease pain, To increase ROM and To improve muscle performance and motor function Text: Thank you for the opportunity to evaluate your patient. For Medicare and Medicare HMO plans, please review the plan of care and approve it. It will need to be FAXED BACK to us at [phone] for Medicare purposes. For Medicare only, by signing this I certify the plan of care. Please let me know if there are questions or concerns regarding this plan of care. Physician Signature : Date:
--- NOTE | 2024-06-04 12:23 | HP.PT.NRP ---
Patient Information Patient Information: ABDULLAHI AMATO was seen in my office for initial evaluation on 02/24/24. The following Plan of Care was established for this patient: POC Established Initial Frequency: 1x/Week Initial Duration: 1 Week Anticipated Interventions Patient/Client Instruction: Educate patient on: Condition and Plan of Care For the Purpose of:: To improve self management Therapeutic Exercise to Include: Strength training, Balance training, Flexibilty training and Active ROM For the Purpose of:: To decrease pain, To increase ROM and To improve muscle performance and motor function Last Seen Last Seen: This patient was last seen in our office . Pertinent comments regarding their Physical therapy will appear below: Pt has not returned through todays date for 30 days and is discontinued at this time. At this point I will be discontinuing this patient from physical therapy. I would be happy to see this patient again in the future if found appropriate by the physician. Thank you! Alfredito Khoury, PT, ATC Balance/Gait/Functional tests Balance/Special Test Scores Lower Extremity Functional Score: 45
== END 2024-03-12 19:00 | disposition home or self-care (01) ==
LOC: PT 10:30
PROVIDERS: PCP Internal Medicine; Referring Provider Podiatrist; Visit Provider Podiatrist
DX: S82.852D Displaced trimalleolar fracture of left lower leg, subsequent encounter for closed fracture with routine healing (principal)
CPT/HCPCS: 97110; 97161